=== PATIENT | male | born 1945 | race Caucasian/White ===

== ENCOUNTER 2018-12-13 12:02 | Inpatient (IN) | payer OTHER, SELFPAY ==
[2018-12-02 09:48] VITALS: BMI 27.8
[2018-12-13] VITALS (14 sets, daily range): BP systolic 95–132; BP diastolic 51–80; PULSE 48–64; RESP 11–20; TEMP 35.7–37.2; O2SAT 93–100; BMI 27.6
--- NOTE | 2018-12-13 12:24 | DI.RAD.S_ITS ---
PROCEDURE: XR PELVIS 1-2V INDICATIONS: LEFT TOTAL HIP TECHNIQUE: 1 view of the lower pelvis acquired. COMPARISON: [facility] [place], [place], XR PELVIS WITH LATERAL HIP LEFT, 12/03/2018, 13:15. FINDINGS: Bones: Patient is status post bilateral hip arthroplasties, with hardware components in expected positions. The hip joint appears congruent. The visualized bony structures appear intact. Soft tissues: Overlying postoperative changes are noted. No suspicious soft tissue densities. Multiple surgical clips project over the lower pelvis possibly related to prior prostatectomy. IMPRESSION: Expected postsurgical change for hip arthroplasties. Dictated by: Merari Perez MD, PhD on 12/13/2018 at 15:39 Approved by: Merari Perez MD, PhD on 12/13/2018 at 15:40
[2018-12-13] MEDS: PREGABALIN 75 MG CAPSULE PO (12:51)
[2018-12-13] MEDS: CELECOXIB 200 MG CAPSULE PO (12:51)
[2018-12-13] MEDS: ACETAMINOPHEN 325 MG TABLET 975 MG PO ×2 (12:51→21:10)
--- NOTE | 2018-12-13 13:27 | PM.PREOP ---
Pre-operative Note Interval Note History & Physical reviewed/Exam performed by Physician: Yes Changes to H&P: No
[2018-12-13] MEDS: CEFAZOLIN 2 GM/100 ML FROZ.PIGGY IV ×2 (13:41→21:11)
[2018-12-13] MEDS: TRANEXAMIC ACID 1,000 MG VIAL 2000 MG INJ (14:01)
--- NOTE | 2018-12-13 14:19 | SUR.OPER ---
Lateral on padded OR bed. Gel axillary roll. Arms secured on padded armboard with pillow supporting top arm. Padded hip positioner braces x4 - anterior and posterior chest and pelvis. Additional gel pad used anterior pelvis. Gel pad under bottom leg from knee to foot and secured with tape over sheet.
[2018-12-13] MEDS: ROPIVACAINE 0.5% PF 5 MG/ML 20ML VIAL 60 ML INJ (14:27)
[2018-12-13] MEDS: MORPHINE 4 MG/ML INJ INJ (14:27)
[2018-12-13] MEDS: KETOROLAC 30 MG/ML VIAL IV (14:28)
--- NOTE | 2018-12-13 15:30 | P.OP_ITS ---
Operative Date/Time/Diagnoses Date of procedure: 12/13/18 Time of procedure: 15:31 Pre-op diagnosis: Left hip degenerative joint disease Post-op diagnosis: same Procedure & Clinicians Procedure: Left total hip arthroplasty (CPT code 97530 with child nutrition assistant) Same procedure as scheduled: Yes Indications: Patient is an 73-year-old male with severe left hip DJD. The patient has pain with activities and at rest, limited ambulation and activity tolerance, difficulties with ADLs, and failure of conservative treatment. We have discussed the nature of condition, treatment options, risks and benefits, and patient elects to proceed with total hip arthroplasty and gives informed consent. Surgeon: Master Torres Handwriting Expert: Federico Shin Anesthesia Type: General and Spinal Operative Notes Closure Type: primary Specimen(s): none sent Prosthetic devices, grafts, tissues, transplants, or devices: Acetabulum: Streeter and Nephew R3 acetabular component size 54 mm Femoral component: Streeter and Nephew Anthology stem size 9 with standard offset Femoral head: 36 mm + 4 cobalt chrome Estimated Blood Loss (mL): 150 Blood products transfused: none Procedure in detail: After satisfaction induction of anesthetic, and administration of IV antibiotics, the patient was positioned in the lateral decubitus position with all bony prominences well padded and pelvic position secured using a hip wildlife biostation research ecologist positioning device. Left hip and lower extremity prepped and draped in the usual sterile fashion, 1st dose of intravenous tranexamic acid was administered, then a longitudinal incision was created centered over the greater trochanter and carried sharply through the skin and subcutaneous tissues down to the fascia merlin which was divided longitudinally and retracted with a Charnley retractor. External rotators visualize, cut, tagged, and retracted posteriorly, then the capsule was cut in a T-type fashion with the corners tagged and retracted. Hip was dislocated and femoral neck cut made according to preoperative templating. Acetabular retractors then placed, and the acetabular labrum and osteophytes were excised. The acetabulum was then sequentially reamed to 53 mm with an excellent circumferential ream and fit with the trial. The trial component was removed and a permanent size 54 mm Streeter and Nephew R3 acetabular component was selected, positioned, and impacted with satisfactory position and fixation achieved. Permanent liner was then inserted with the elevated lip directed posteriorly. Soft tissue then removed off the lateral femoral neck in the lateral neck was entered using a box osteotome. T- handled reamers placed down the canal followed by sequential broaching to 9 with the final broach left in place for trial reduction which demonstrated excellent leg length, range of motion, and stability characteristics with a 36 mm +0 trial ball. The trial and broach were removed, and a permanent size 9 Streeter and Nephew Anthology stem was selected and inserted with excellent position and fixation achieved, however it was felt that the permanent stem set in 2-3 mm deeper than the broach so a neither trial was done with a +4 ball and this was felt to yield more satisfactory leg length with excellent maintenance of range of motion and stability, so the trial ball was exchanged for a permanent 36 mm +4 cobalt chrome ball. The hip was irrigated and reduced and excellent leg length range of motion and stability characteristics were achieved and maintained. Periarticular tissues were infiltrated with ropivacaine, morphine, and Toradol. The hip was copiously irrigated, and the capsule repaired with #2 Ethibond, and the piriformis was repaired back to the greater trochanter with the same. Fascia merlin closed with interrupted #1 Ethibond sutures, and the subcutaneous tissues were closed in 2 layers of 0 Vicryl and 2 0 Vicryl. Skin was closed with troy and sterile dressings applied. Second dose of tranexamic acid was administered intravenously, and the anesthetic was terminated. Complications: none Post-operative Condition: stable Disposition: PACU Plan for aftercare: Patient will be admitted to the acute care [facility], and anticipate discharge on postop day 1 with follow-up in office in 10-14 days. Outpatient physical therapy will be arranged and patient will continue to observe posterior hip precautions. Patient will continue use of postoperative Lovenox for 10 days postop.
--- NOTE | 2018-12-13 16:14 | SUR.PHASEI ---
Report called to Cheryle
--- NOTE | 2018-12-13 16:34 | SUR.PHASEI ---
Pt transferred to the floor with belongings bag and partial in denture box. Report to Cheryle. VS stable. Lt hip drsg cdi. Pt unable to move ankles. IV saline locked.
[2018-12-13] MEDS: LACTATED RINGERS 1,000 ML 125 ML IV (17:21)
--- NOTE | 2018-12-13 17:43 | PC.ADMIT ---
[email or web address] [facility] Admission Note: The patient,Alec Lugo,73 y/o, was given written information regarding hospital policies, unit procedures and contact persons. Patient's smoking status: Never smoker. Vital Signs - 8 hr 12/13/18 12:56 12/13/18 15:16 12/13/18 15:21 Temperature 98.9 F 97.8 F Pulse Rate 56 L 53 L 51 L Respiratory Rate 16 16 13 Blood Pressure 126/80 102/63 95/60 Pulse Oximetry 98 93 95 12/13/18 15:26 12/13/18 15:31 12/13/18 15:41 Temperature Pulse Rate 57 L 51 L 52 L Respiratory Rate 13 11 L Blood Pressure 99/69 104/65 106/65 Pulse Oximetry 96 94 95 12/13/18 15:56 12/13/18 16:06 12/13/18 16:30 Temperature 96.2 F L 96.9 F L Pulse Rate 48 L 48 L 51 L Respiratory Rate 12 12 17 Blood Pressure 106/64 103/64 105/70 Pulse Oximetry 97 97 93 12/13/18 17:21 Temperature 97.1 F L Pulse Rate 48 L Respiratory Rate 18 Blood Pressure 100/64 Pulse Oximetry 95 Patient admitted to AC room 221 from PACU s/p left MURRAY by Dr. Tubbs. Scheduled. A & O x 3, 2 + pulse to BLE, numbness, warm, pink, not moving toes. Oriented to room, environment, and plan of care. Call light within reach.
[2018-12-14 00:04] VITALS: BP 110/59; PULSE 64; RESP 20; TEMP 36.7; O2SAT 95
[2018-12-14] MEDS: CEFAZOLIN 2 GM/100 ML FROZ.PIGGY IV (05:17)
[2018-12-14 06:12] VITALS: BP 102/53; PULSE 57; RESP 18; TEMP 36.8; O2SAT 98
[2018-12-14 06:34] LABS: Hematocrit 43.4 % (41-53); Hemoglobin 14.5 g/dL (13.5-17.5)
--- NOTE | 2018-12-14 07:43 | PC.NURSE ---
Addendum entered by Marine Morales R.N. 12/14/18 10:20: Pt was found ambulating in room indep by another RN. Chair alarm had been previously on but did not alarm. Pt's in room at that time around 1000. Pt reminded to use call light for assist at all times. Forgetful due to short term memory loss per pt's . Pt assisted to BR with SBA using gait belt and FWW, tolerated well. While sitting on toilet, pt did report feeling dizzy and was slightly diaphoretic to his back. Pt assisted back to recliner chair with BLE elevated, pillow between BLE and chair alarm placed to back upper shoulder area on gown. remains at bedside. PT Caryl consulted to perform PT session with pt's present. Addendum entered by Marine Morales R.N. 12/14/18 07:52: During assessment stated below, pt was sitting in chair with legs dangle and had his ankles crossed. Chair then placed in reclined position and placed a pillow between BLE as stated below. Pt reminded not to cross legs during his post op phase. Original Note: Day Shift- Pt A&OX4, forgetful to plan of care for the day, Oriented to call light, reminded to not get out of chair by himself, he needs assist to mobilize at any time. Rates 1/10 dull aching to left hip, I know surgery happened. Left hip bulky abd pad dressing CDI, CMS+, denies numbness or tingling, no peripheral edema noted. Pt currently sitting up in chair, reclined with pillow between BLE.
[2018-12-14 07:55] VITALS: BP 126/79; PULSE 64; RESP 15; TEMP 36.8; O2SAT 99
[2018-12-14] MEDS: ACETAMINOPHEN 325 MG TABLET 975 MG PO ×2 (08:59→15:08)
[2018-12-14] MEDS: ENOXAPARIN 40 MG/0.4 ML SYRINGE SUBCUT (09:01)
--- NOTE | 2018-12-14 11:48 | PT.IIE ---
Addendum entered and electronically signed by Daniela Guillen PT 12/14/18 11:49: PLAN: Please adjust height of pt's walker to prepare for discharge Original Note: Current Diagnoses Unilateral primary osteoarthritis, left hip (12/13/18) Surgery Performed Operation Date: 12/13/18 14:15 Actual Procedures p Total Hip Arthroplasty(Left) - Master Torres MD Surgical History (Last Updated 12/02/18 @ 10:16 by Swathi Cardona RN) History of cataract extraction (Acute) History of total right hip arthroplasty (Acute ~2013) History of uvulopalatopharyngoplasty (Acute) Hx of hernia repair (Acute) Hx of prostatectomy (Acute ~2009) Hx of tonsillectomy (Acute) Medical History (Last Updated 12/02/18 @ 11:50 by Swathi Cardona RN) Cyst (Acute) Easy bruisability (Acute) Hearing impaired (Acute) HTN (hypertension) (Acute) Hx of agent [place] exposure (Acute) Kidney stones (Acute) Mild cognitive impairment (Acute) Sleep apnea (Acute ~1998) Physical Therapy Inpatient Evaluation/Re-Eval M1 PT/OT-IP Prior Functional Status Start: 12/14/18 10:20 Freq: NEEDED Status: Active Protocol: Document 12/14/18 11:28 AW (Rec: 12/14/18 11:48 AW [id number]) Medical Review Prior Functional Status Medical History Reviewed Yes Diet/Fluid Consistency Regular Communication Pt able to make needs known. Spouse reports recent problems with short-term memory. Mobility and Gait Pt was independent with all functional mobility, requiring no assistive device. He managed stairs and had no limitation in walking distance . Activities of Daily Living and IADL's Independent Social History Household Members spouse Living Arrangements House Number of Floors (Floors) Two Floors Number of Stairs To Enter/Railing? 5 JANY with left rail ascending . Pt lives on main level and has no need to access the basement. Home Environment Standard Height Toilet,Walk in Shower Home Equipment Front Wheel Walker,Straight Cane,Raised Toilet Seat w/ Armrests,Long Handled Shoe Horn,Sock Aid Employment Status Retired Additional Social History Comment Spouse is also retired and is available to assist 24/7. M2 PT-IP Current Condition Start: 12/14/18 10:20 Freq: NEEDED Status: Active Protocol: Document 12/14/18 11:28 AW (Rec: 12/14/18 11:48 AW [id number]) Physical Therapy Current Condition Current Condition Evaluation Date 12/14/18 Treatment Diagnosis s/p L MURRAY posterior approach, impaired transfers and gait. Onset Date 12/13/18 Precautions Posterior Hip Precautions No Hip Flexion > 90 degrees,No Hip Internal Rotation,No Hip Adduction Weight Bearing Status Weight Bearing Status Weight Bear as Tolerated Allowed Weight Bearing Amount (enter % WBAT LLE with walker or #) (%) M3 PT-IP Subjective Start: 12/14/18 10:20 Freq: NEEDED Status: Active Protocol: Document 12/14/18 11:28 AW (Rec: 12/14/18 11:48 AW [id number]) Subjective Physical Therapy Visit Type Type Initial Evaluation Visit Start Time 10:27 Visit Stop Time 11:05 Total Visit Minutes 38 Number of EQUINE INTERNSHIP Visits 0 Physical Therapy Visit Comments Patient Comments Pt sitting up in chair, visiting with , eager to mobilize with PT Patient Goals Pt hopes to return home today with 's assistance Therapy Pain Assessment Pain When Pain Assessed During Mobility Pain Present Pain Present Denied Pain M4 PT-IP Mobility and Gait Start: 12/14/18 10:20 Freq: NEEDED Status: Active Protocol: Document 12/14/18 11:28 AW (Rec: 12/14/18 11:48 AW [id number]) PT-Bed Mobility Assessment Sit to Supine Sit to Supine Standby Assistance Scooting Scooting Up and Down in Bed Standby Assistance PT-Transfer Assessment Sit to and From Stand Sit to and from Stand Contact Guard Assistance,Use of Upper Extremities Equipment Transfer Assistive Device Gait Belt,Front Wheeled Walker Orthotic/Prosthetic Devices or Brace: No Transfers Transfer Destination Bed Transfer Technique Stand Step Pivot Transfer Ability Level of Assist Contact Guard Assistance Comments Mobility Comments Pt requiring CGA and max verbal cues for transfers due to poor attention to hip flexion precaution. Tactile cues required to maintain upright or leaned-back posture in order to maintain precautions Gait Assessment Gait Gait Assistance Required: Standby Assistance,Contact Guard Assist Distance (Feet) 75 Able to Maintain Weight Bearing Status Yes During Gait Assistive Devices Assistive Device Gait Belt,Front Wheeled Walker Orthotic/Prosthetic Devices or Brace: No Gait Deviations General Gait Pattern Antalgic,Decreased Stride Length,Flexed Trunk Factors Limiting Gait Function Factors Limiting Gait Function Decreased Strength,Limited Range of Motion,Poor Safety Awareness Comments Gait Comments Pt required SBA to CGA due to poor attention to obstacles. Turns required verbal cues to take small steps or turn to the right to avoid internal rotation of the hip. PT-Balance Assessment Sitting Balance and Reactions Static Sitting Balance Ability Good Dynamic Sitting Balance Ability Good Standing Balance and Reactions Static Standing Balance Ability Good Dynamic Standing Balance Ability Good Device Used FWW M5 PT-IP Objective Assessments Start: 12/14/18 10:20 Freq: NEEDED Status: Active Protocol: Document 12/14/18 11:28 AW (Rec: 12/14/18 11:48 AW [id number]) Orientation Orientation/Cognition Level of Alertness Alert Orientation Name,Month,Place,Situation Language Function Ability Hard of Hearing Safety Awareness Decreased Safety Awareness Memory Description Short Term Impaired Comments Pt had difficulty teaching back hip precautions when queried. notes he has had difficulty with short-term memory recently Gross Range of Motion Upper Extremity ROM Assessment Within Functional Limits Lower Extremity ROM Assessment Left Impaired Strength Upper Extremity Strength Assessment Within Functional Limits Lower Extremity Strength Assessment Left Impaired Comments Strength Comments BUE and RLE strength grossly 5 /5. Coordination Assessment Gross Coordination Gross Coordination WNL Sensation Assessment Sensation Gross Sensation WNL Muscle Tone Muscle Tone WNL Yes M6 PT-IP Treatment Start: 12/14/18 10:20 Freq: NEEDED Status: Active Protocol: Document 12/14/18 11:28 AW (Rec: 12/14/18 11:48 AW [id number]) Physical Therapy Treatment Exercises Exercises Ankle Pumps,Gluteal Sets,Quad Sets,Heel Slides Education Education Provided Precautions,Weight Bearing Status,Post-Op Packet,Safety M7 PT-IP Assessment and Plan Start: 12/14/18 10:20 Freq: NEEDED Status: Active Protocol: Document 12/14/18 11:28 AW (Rec: 12/14/18 11:48 AW [id number]) PT Summary Assessment and Plan Potential Rehabilitation Potential Good Status of Condition at Evaluation Evolving Summary Impairments ROM,Strength,Cognition,Bed Mobility,Transfers,Gait Assessment Summary Pt is a 73 yo man with history of R MURRAY in 2013. He was seen on POD1 following L MURRAY with posterior approach. PLOF: Completely independent, including stairs and driving with no assistive device needed. CLOF: PT reviewed weight-bearing status, post-op precautions, and PT plan of care, emphasizing need for FWW until advised otherwise by ortho. Pt required frequent reminders about hip precautions, in particular needing verbal and tactile cues when standing or sitting in order to avoid excessive hip flexion. Gait with FWW required frequent cues for navigation with pt demonstrating decreased attention to task. He has poor short-term recall of his precautions. was present for session and is able to provide cues for pt, but he is slightly impulsive. is available to provide 24/7 assist with all mobility and he has outpatient PT evaluation already scheduled. In this context, PT recommends discharge to home with 24/7 spouse assist once cleared on stairs. Pt left with spouse in room, call light and table within reach, bed alarm armed. Goals Bed Mobility Goal Independent Transfer Goal Standby Assistance Gait Goal Standby Assistance Gait Distance 100 Other Goals Pt to ascend/descend 5 steps using left railing CGA or less . Days to Meet Goals 2 Frequency of Treatment Frequency Of Treatment Twice a Day Treatment Plan Physical Therapy Treatment Plan Bed Mobility Training,Transfer Training,Gait Training, Therapeutic Exercise,Post Op Education,Discharge Planning, Hot or Cold Pack,Neuromuscular Re-ed,Coordination Retraining ,Manual Therapy Other Recommendations and Next Treatment Continue to emphasize Focus precautions. Must trial stairs to clear for discharge. Recommendations To Nursing Amount of Assist Needed Standby Assistance,1 Person Assist Discharge Recommendations PT Discharge Recommendations Home with 24/7 Assist, Outpatient PT
[2018-12-14 12:40] VITALS: BP 116/69; PULSE 71; RESP 16; TEMP 36.9; O2SAT 95
[2018-12-14 13:21] VITALS: PULSE 58; RESP 19; O2SAT 97
--- NOTE | 2018-12-14 15:17 | P.DS_ITS ---
History of Present Illness History of Present Illness Date Patient Seen: 12/14/18 Time Patient Seen: 15:17 Chief complaint: 66300 LEFT TOTAL HIP ARTHROPLASTY Narrative: Patient's pain is mild. Denies fever chills. No nausea vomiting. He has been up with physical therapy. He is urinating on his own. is home to assist him. Discharge Providers Provider Date of admission: 12/13/18 12:02 Discharge Date: 12/14/18 Primary care physician: Wan Persaud MD Consults: 12/13/18 17:07 Consult to Discharge Planning Routine Comment: Consult to Physical Therapy Evaluate & Treat Comment: Physician Instructions: post op MURRAY protocol Consult to Respiratory Therapy Evaluate & Treat Comment: Physician Instructions: Evaluate and treat Discharge provider: Federico Shin PA-C Summary Hospital Course Discharge Diagnosis: Left hip DJD status post left total hip arthroplasty Hospital Course: Indications: Patient is an 73-year-old male with severe left hip DJD. The patient has pain with activities and at rest, limited ambulation and activity tolerance, difficulties with ADLs, and failure of conservative treatment. We have discussed the nature of condition, treatment options, risks and benefits, and patient elects to proceed with total hip arthroplasty and gives informed consent. Surgeon: Master Torres Program/Music Director: Federico Shin Anesthesia Type: General and Spinal Operative Notes Closure Type: primary Specimen(s): none sent Prosthetic devices, grafts, tissues, transplants, or devices: Acetabulum: Streeter and Nephew R3 acetabular component size 54 mm Femoral component: Streeter and Nephew Anthology stem size 9 with standard offset Femoral head: 36 mm + 4 cobalt chrome Estimated Blood Loss (mL): 150 Blood products transfused: none Patient admitted to the hospital for left total hip arthroplasty. Patient cons ented to the same. Patient taken to operating room yesterday underwent left total hip arthroplasty. Patient back in his room recovering well as in stable condition. Patient has been working with physical therapy is ready for discharge. Status at Discharge Cognitive/behavioral status at discharge: at baseline, oriented Functional status at discharge: uses cane/walker Overall status at discharge: patient is progressing back to baseline Time Spent with Patient Time spent: Less than 30 minutes Exam Vital Signs (past 8 hours): - 12/14/18 07:55 12/14/18 12:40 12/14/18 13:21 Temperature 98.3 F 98.4 F Pulse Rate 64 71 58 L Respiratory Rate 15 16 19 Blood Pressure 126/79 116/69 Pulse Oximetry 99 95 97 Oxygen Delivery Method Room Air Oxygen Flow Rate 0 Narrative Exam Narrative: 73-year-old male sitting comfortably in bedside chair in no apparent distress. Left hip dressing is clean, dry and intact. Motor functions intact distal left lower extremity. Left leg is warm and dry. Sensation grossly intact to light touch. Objective Labs Result Diagrams: 12/14/18 06:14 Labs: Laboratory Results - last 24 hr 12/14/18 06:14 Hgb 14.5 Hct 43.4 Discharge Plan Discharge Plan Patient Disposition: Home Discharge Med Rec/Prescriptions Prescriptions: New enoxaparin [Lovenox] 40 mg/0.4 mL Syringe 40 mg subcut DAILY Qty: 9 RF: 0 Continued donepezil 10 mg Tablet 10 mg PO BEDTIME RF: 0 metoprolol tartrate 25 mg Tablet 25 mg PO BID RF: 0 Discontinued aspirin 81 mg Tablet,Delayed Release (Dr/Ec) 81 mg PO Q OTHER DAY RF: 0 naproxen sodium [Aleve] 220 mg Capsule 220 mg PO BID PRN (Reason: Pain) RF: 0 Follow up/Referrals: Master Torres MD [Physician] - Wan Persaud MD [Primary Care Provider] - Provider Discharge Instructions Diet: Diet as Tolerated Activity: Weightbearing as tolerated. Posterior hip precautions. Cold/Heat Therapy: Apply ice to the affected hip as needed Other treatments: Lovenox injections for another 9 days then aspirin 81 mg b.i.d.. Tylenol 500 mg every 4 hours, ibuprofen 400 mg every 4 hours, oxycodone as needed pain Skin/Wound/Dressing Care Report to your healthcare provider any signs of infection, such as:: chills, fever, increased pain, unusual drainage and unusual redness Dressing: Keep clean and dry Visit Report/Discharge Packet Instructions: DI for Hip Replacement, How to Prevent Falls, DI for Postoperative Pain, Enoxaparin Injection Stand Alone Forms: Surgery Discharge Discharge Data Primary Care Provider: Wan Persaud
--- NOTE | 2018-12-14 15:19 | CM.DANOTE ---
DCP/Assessment: Reviewed chart. patient is a 73yr old male admitted to [facility] for left MURRAY performed on 12-13-18. PCP is Dr Persaud. Primary payor is 1)[employer] Advantage 2)Self Pay. Met with patient explained CM/SW role. Patient reports that he hopes to d/c home today. Patient has supportive spouse/Heather at bedside. Patient planning to do outpatient therapy in [place] beginning next week. Therapy following and plan to work with patient on steps one more time today prior to d/c. P: Home when stable. 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 Yes Advance Directives on File No: Unsure where copy is presently History Provided By Patient,Significant Other Prior Living Arrangements House Household Members spouse Type of transporation used prior to Drives own vehicle admit Independent with ADL's Yes Is patient alert and oriented? Yes Caregiver for Another No DME Already Rented / Owned FWW / Walker Patient/Family Preference OP PT Therapy Barriers to Discharge No Discharge Plan Home Transportation Arrangement Spouse to provide transport home. Referrals Initiated None needed Whiteboard Updated in Patient Room with Yes name and ext. # of Truck Engine Technician Review Status In Process Next Review Type Continued Stay Review Pre-Anesthesia Assessment Start: 12/02/18 09:48 Freq: Status: Complete Protocol: Document 12/02/18 09:48 CAB (Rec: 12/02/18 10:25 CAB [id number]) Pre-Anesthesia Assessment Patient Also Known As Sandra (AKA) Patient Information Reviewed Via Phone Assessment Assessment Completed With Spouse Comment Pt very [place], dementia issues Primary Care Provider Wan Persaud Seen Specialist in Last 12 Months Yes Specialist Seen Orthopedist,Other Comment Neurology r/t dementia issue Primary Language Chinese Boarding House Manager Required No Height 179.07 cm Weight 89.358 kg Body Mass Index (BMI) 27.8 Hearing Ability Hard of Hearing,Use of Hearing Aid Visual Assist Glasses Dentition Type Teeth, Natural Present,Teeth, Missing Barriers to Learning Memory Comment Recent diagnosis of mild cognitive impairment Hx Anesthesia Reactions No Hx Family Anesthesia Reaction No Hx Malignant Hyperthermia No Hx Blood Transfusions No Anesthesia Review Requested No alcohol intake current alcohol intake frequency a few times a week Smoking Status Never smoker Substance Use Type does not use Pain Present Pain Reported Musculoskeletal Symptoms Abnormal Gait,Back Pain, Difficulty Walking,Joint Pain History of Falling (Recent or History of No ) Patient is completely paralyzed or No completely immobile Mental Status Forgets limitations Is patient on oxygen? No Does patient have DAN/SOB No Hx Sleep Apnea Yes: Resolved s/p UPPP Currently Taking a Beta Apple Yes: Metoprolol Can You Climb a Flight of Stairs Without Yes SOB Hx Chest Pain No Hx SOB No Hx Syncope or Dizziness No Anti-Coagulant Therapy No Has a And Drying Supervisor Cooking Casing No Cardiac Testing No Hx Pacemaker/ICD No Pacemaker Rep Required? No Cardiac Clearance Received Not Applicable Diet Type At Home Regular dysphagia No Urinary Catheter Present No Hx Urinary Self Catheterization No Diabetes No Hx Drug Resistant Organism No Presence of External or Internal Medical Yes: Right hip prosthesis Devices Have you traveled outside the [facility] States in the last 30 days? Marital Status Lives With spouse Prior Living Arrangements House Number of Floors (Floors) Two Floors Number of Stairs To Enter/Railing? 5 Steps into home Support System Sibling(s),Significant Other Does the Patient Have Assistance After Yes Surgery Patient Discharge Plan Description Return Home Comment Pt advised overnight length of stay per surgeon Feels Safe in Current Environment Yes Been Physically Hurt or Threatened By a No Person in Current Environment Do you have thoughts of harming yourself None or others? Are you currently considering suicide? No Do you have a plan to hurt yourself or No Plan others? Do You Have Any Spiritual Beliefs That No May Affect Your HC Choices? Do You Have Any Cultural Practices That No May Affect Your HC Choices? Comment Mandaen Who Can We Speak to About Patient's Care Family, friends Identifying Code for Release of Patient Declines to issue Information Health Care Proxy/Next of Kin Heather () Health Care Proxy [phone] Emergency Contact Name Heather () Emergency Contact [phone] Advance Directives? Yes Advance Directives on File No: Unsure where copy is presently PAC Instructions Durable medical equipment, Medications to take/avoid, Nasal antibiotic,No ETOH/ petroleum product on skin DOS, NPO,Post-op transportation,Pre -surgical wash,Sturdy shoes/ comfortable clothes,Do not bring valuables and remove jewelry
[2018-12-14] MEDS: HYDROCODONE/ACET 5/325 TABLET 1 TAB PO (16:01)
--- NOTE | 2018-12-14 16:08 | PT.IPTN ---
Current Diagnoses Unilateral primary osteoarthritis, left hip (12/13/18) Surgery Performed Operation Date: 12/13/18 14:15 Actual Procedures p Total Hip Arthroplasty(Left) - Master Torres MD Physical Therapy Treatment Note M2 PT-IP Current Condition Start: 12/14/18 10:20 Freq: NEEDED Status: Active Protocol: Document 12/14/18 11:28 AW (Rec: 12/14/18 11:48 AW [id number]) Physical Therapy Current Condition Current Condition Evaluation Date 12/14/18 Treatment Diagnosis s/p L MURRAY posterior approach, impaired transfers and gait. 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 Patient Goals Go home with today. Therapy Pain Assessment Pain When Pain Assessed During Mobility Pain Present Pain Present Pain Reported Location Left Hip Intensity 5 Scale Used Numeric (1 - 10) Pain Management Techniques Modification of Treatment,Re- positioning,Timing of Activity with Medications M4 PT-IP Mobility and Gait Start: 12/14/18 10:20 Freq: NEEDED Status: Active Protocol: Document 12/14/18 15:24 CLB (Rec: 12/14/18 16:08 CLB [id number]) PT-Transfer Assessment Sit to and From Stand Sit to and from Stand Standby Assistance,Contact Guard Assistance,Use of Upper Extremities Equipment Transfer Assistive Device Gait Belt,Front Wheeled Walker Orthotic/Prosthetic Devices or Brace: No Transfers Transfer Destination Chair,Wheelchair Transfer Technique Stand Step Pivot Transfer Ability Level of Assist Contact Guard Assistance Comments Mobility Comments Pt continues to require cues to follow hip precautions. is good at cuing pt appropriately. Gait Assessment Gait Gait Assistance Required: Standby Assistance,Contact Guard Assist Distance (Feet) 250 Able to Maintain Weight Bearing Status Yes During Gait Assistive Devices Assistive Device Gait Belt,Front Wheeled Walker Orthotic/Prosthetic Devices or Brace: No Gait Deviations General Gait Pattern Antalgic,Decreased Stride Length,Flexed Trunk Factors Limiting Gait Function Factors Limiting Gait Function Decreased Strength,Limited Range of Motion,Poor Safety Awareness Comments Gait Comments Pt increased ambulation walking from therapy stairs to his room ~250ft w/FWW and providing CGA. Pt improving with small steps during turns, cuing appropriately. Stair Climbing Assessment Evaluation Level of Assist On Stairs Contact Guard Assistance,1 Person Assistance Devices Stair Climbing Assistive Devices Small Base Quad Cane,Left Railing Technique/Endurance Stair Climbing Direction Ascend and Descend Stair Climbing Technique Step to Step Number of Steps Climbed 3 Stair Climbing Set # Repetitions (reps) 2 Comments Stair Climbing Comments Pt requires CGA and max verbal cues for step sequencing. Pt' s able to provide CGA and cuing during stair climbing. M5 PT-IP Objective Assessments Start: 12/14/18 10:20 Freq: NEEDED Status: Active Protocol: Document 12/14/18 11:28 AW (Rec: 12/14/18 11:48 AW [id number]) Orientation Orientation/Cognition Level of Alertness Alert Orientation Name,Month,Place,Situation Language Function Ability Hard of Hearing Safety Awareness Decreased Safety Awareness Memory Description Short Term Impaired Comments Pt had difficulty teaching back hip precautions when queried. notes he has had difficulty with short-term memory recently Gross Range of Motion Upper Extremity ROM Assessment Within Functional Limits Lower Extremity ROM Assessment Left Impaired Strength Upper Extremity Strength Assessment Within Functional Limits Lower Extremity Strength Assessment Left Impaired Comments Strength Comments BUE and RLE strength grossly 5 /5. Coordination Assessment Gross Coordination Gross Coordination WNL Sensation Assessment Sensation Gross Sensation WNL Muscle Tone Muscle Tone WNL Yes M6 PT-IP Treatment Start: 12/14/18 10:20 Freq: NEEDED Status: Active Protocol: Document 12/14/18 15:24 CLB (Rec: 12/14/18 16:08 CLB [id number]) Physical Therapy Treatment Exercises Exercises Ankle Pumps,Gluteal Sets,Quad Sets Education Education Provided Precautions,Weight Bearing Status,Post-Op Packet,Safety Other Treatments Other Treatment Performed review precautions with pt and , discussed transfer into and out of car. M7 PT-IP Assessment and Plan Start: 12/14/18 10:20 Freq: NEEDED Status: Active Protocol: Document 12/14/18 15:24 CLB (Rec: 12/14/18 16:08 CLB [id number]) PT Summary Assessment and Plan Potential Rehabilitation Potential Good Status of Condition at Evaluation Evolving Summary Impairments ROM,Strength,Cognition,Bed Mobility,Transfers,Gait Assessment Summary Pt improved with gait distance to ~250ft. Pt able to climb stairs with providing cues for step sequencing and CGA. Pt requires Max cues to follow hip precautions during sit<>stand and is able to appropriately give cues and proper sequencing. Pt has short term memory and needs continuous reminders about hip precautions, understands precautions and is able to assist pt. Left pt in chair with all needs within reach and chair alarm on. Goals Bed Mobility Goal Independent Transfer Goal Standby Assistance Gait Goal Standby Assistance Gait Distance 100 Other Goals Pt to ascend/descend 5 steps using left railing CGA or less . Days to Meet Goals 2 Frequency of Treatment Frequency Of Treatment Twice a Day Treatment Plan Physical Therapy Treatment Plan Bed Mobility Training,Transfer Training,Gait Training, Therapeutic Exercise,Post Op Education,Discharge Planning, Hot or Cold Pack,Neuromuscular Re-ed,Coordination Retraining ,Manual Therapy Recommendations To Nursing Amount of Assist Needed Standby Assistance,1 Person Assist Discharge Recommendations PT Discharge Recommendations Home with 27/10 Assist, Outpatient PT
--- NOTE | 2018-12-14 16:50 | PC.NURSE ---
Discharge Note- Patient discharged home. IV line removed and bandaid applied> reviewed all discharge instructions and education with patient spouse and patient. Paperwork signed. Helped patient get dressed and pack up all personal belongings. Patient taken to personal car with all personal belongings via wheelchair at 1640.
== END 2018-12-14 16:40 | disposition home or self-care (01) | DRG 470 ==
PROVIDERS: Admitting Provider Orthopaedic Surgery; PCP Family Medicine; Visit Provider Orthopaedic Surgery
PROC: 0SRB0JZ Replacement of Left Hip Joint with Synthetic Substitute, Open Approach (ICD-10-PCS; CPT 27130; principal; 2018-12-13 14:15)
DX: M16.12 Unilateral primary osteoarthritis, left hip (principal); Z96.641 Presence of right artificial hip joint
CPT/HCPCS: 36415; 72170; 85014; 85018; 94760; 94762; 97110; 97116; 97161; C1776; J0690; J1100; J1650; J1885; J2250; J2270; J2274; J2405; J2704; J3010